=== PATIENT | female | born 1940 | race Caucasian/White ===

== ENCOUNTER 2017-11-08 20:07 | Emergency (ER) | payer OTHER ==
[2017-11-08 20:14] VITALS: BP 153/85
[2017-11-08] MEDS ORDERED: SULFACETAMIDE DROPS 10% PREPACK OPHT.BTL TAKEHOME ONE (20:20)
[2017-11-08] MEDS ORDERED: AMOXICILLIN/CLAVULANATE POT 875/125 MG TAB PO ONE (20:20)
--- NOTE | 2017-11-08 20:25 | EDPHY ---
H & P Stated Complaint: left eye drainage Source: Patient, Family () Exam Limitations: No limitations - Personal History Current Tetanus Diphtheria and Acellular Pertussis (TDAP): Unsure - Medical/Surgical History Hx Asthma: No Hx Chronic Respiratory Disease: No Hx Diabetes: No Hx Cardiac Disease: No Hx Renal Disease: No Hx Cirrhosis: No Hx Alcoholism: No Hx HIV/AIDS: No Hx Splenectomy or Spleen Trauma: No Other PMH: hypothyroid, tonsilectomy, endometriosis, heart murmer, atrial valve prolapse - Social History Smoking Status: Former smoker Time Seen by Provider: 11/08/17 20:20 HPI/ROS: HPI: This is a 76-year-old female who presents with Chief Complaint: Left eye discharge and sinus congestion Location: Left eye Quality: discharge Duration: 2 hr Signs and Symptoms: + low-grade fever, no nausea, no vomiting, no diarrhea, no urinary symptoms, no chest pain, no shortness of breath, no wheezing, no cough, no sore throat, no neck stiffness, no joint pain, no swollen glands, no ear pain , no rash Timing: Acute Severity: Moderate Context: Patient presents with 3-4 day history of nasal pressure, sinus congestion and low-grade fever. She has tried antihistamines and over-the- counter decongestants without any relief. Upon blowing her nose she has greenish yellow discharge and noted today some scant blood on the tissue paper. She reports that approximately 2 hr prior to arrival, she noted yellowish green discharge from the medial portion of her left eye. Denies any visual changes/ visual floaters/feeling a foreign body sensation/headache. Patient denies any seasonal allergies or itchy watery eyes, no sneezing. Has yearly eye exams. Modifying Factors: See above Comment: ROS: see HPI Constitutional: + fever, no chills, no weight loss Eyes: No blurred vision Respiratory: No shortness of breath, no cough Cardiovascular: No chest pain, no palpitations Gastrointestinal: No nausea, no vomiting, no diarrhea, no hematemesis, no blood in stool Genitourinary: No dysuria, no blood in urine Extremities: No myalgias, no edema Neurologic: No weakness, no numbness Skin: No rashes, no petechiae Hematologic: No bruising, no bleeding MEDICAL/SURGICAL/SOCIAL HISTORY: Medical/surgical history: hypothyroid, tonsillectomy, endometriosis, heart murmur, atrial valve prolapse Social history: . Retired. Family history noncontributory. CONSTITUTIONAL: Extremely pleasant elderly white female, awake and alert, no obvious distress HEENT: Atraumatic and normocephalic, PERRL, EOMI. Suborbital dark eating noted bilaterally. Nares patent; dried scant amount of blood in the right nare approximately at 3 o'clock; moderate nasal mucosal edema. Greenish discharge noted. Tympanic membranes clear. Oropharynx clear, no exudate and moist pink mucosa. Airway patent. No lymphadenopathy. No meningismus. Visual Acuity: noted from Nurse's notes. Pupils: equal round and reactive to light. EOMI. Lids: no edema or swelling Skin: no proptosis, no periorbital erythema or swelling, no vesicles Conjunctivae: Left Mildly injected, right no injection, + yellowish discharge right medial eye lower lid] NEUROLOGICAL: no focal neuro deficits. GCS 15. SKIN: Warm and dry, no erythema. no rash. Good capillary refill. (Heidy Otoole) Constitutional: Initial Vital Signs Temperature (C) 37.5 C 11/08/17 20:10 Heart Rate 92 11/08/17 20:10 Respiratory Rate 18 11/08/17 20:10 Blood Pressure 153/85 H 11/08/17 20:10 O2 Sat (%) 92 11/08/17 20:10 O2 Delivery Mode Room Air Allergies/Adverse Reactions: ketoprofen [From Orudis] Allergy (Verified 11/08/17 20:10) Home Medications: Medication Instructions Recorded Amoxicillin/Clavulanate Pot 875 mg PO BID #14 tab 11/08/17 [Augmentin 875 MG TAB (*)] Levothyroxine 11/08/17 Medical Decision Making ED Course/Re-evaluation: Patient clearly has a sinus infection along with conjunctivitis. Given Augmentin and Bleph 10 eyedrops. This patient was seen under the supervision of my secondary supervising physician. I evaluated care for this patient independently. Discussed this patient with Dr. Perea who did not see the patient. (Heidy Otoole) Differential Diagnosis: Differential diagnosis includes but is not limited to upper respiratory infection, viral conjunctivitis, bacterial conjunctivitis, sinusitis. (Heidy Otoole) Other Provider: PHYSICIAN DOCUMENTATION: The patient was evaluated and managed by the Physician Chemical Processing Laborer. My co- signature indicates that I have reviewed this chart and I agree with the findings and plan of care as documented. I am the secondary supervising physician. (Efrain Perea) - Data Points Medications Given: Discontinued Medications Amoxicillin/Clavulanate Potassium (Augmentin 875mg) 875 mg PO EDNOW ONE PRN Reason: Protocol Stop: 11/08/17 20:21 Last Admin: 11/08/17 20:29 Dose: 875 mg Sulfacetamide (Bleph-10 10% Opht Drops Prepack) 1 btl TAKEHOME EDNOW ONE Stop: 11/08/17 20:21 Last Admin: 11/08/17 20:29 Dose: 1 btl Departure - Departure Disposition: Home, Routine, Self-Care Clinical Impression: Acute bacterial sinusitis Left conjunctivitis Qualifiers: Conjunctivitis type: acute Acute conjunctivitis type: unspecified Qualified Code(s): H10.32 - Unspecified acute conjunctivitis, left eye Condition: Good Instructions: Sulfacetamide (Into the eye), Amoxicillin/Clavulanate Potassium ( By mouth), Sinusitis (ED), Conjunctivitis (ED) Additional Instructions: Please take [id number] Flonase or Rhinocort with 1 spray each nostril once daily for the next 7 days. Use Sudafed 30 mg every 8 hr as needed for nasal congestion. Use Bleph 10 ocular drops; 1 drop in your left eye every 6 hr while awake x5 days. Take Augmentin twice daily for the next 7 days. Eye Complaint: Return to the Emergency Department for any increase in eye pain or any worsening of your vision. Referrals: PCP Not In,Dictionary [Medical Doctor] - As per Instructions Prescriptions: Amoxicillin/Clavulanate Pot [Augmentin 875 MG TAB (*)] 875 mg PO BID #14 tab
== END 2017-11-08 20:48 | disposition home or self-care (01) ==
DX: J01.90 Acute sinusitis, unspecified (principal); H10.32 Unspecified acute conjunctivitis, left eye; Z87.891 Personal history of nicotine dependence

== ENCOUNTER 2018-09-14 17:38 | Emergency (ER) | payer OTHER ==
--- NOTE | 2018-09-14 17:48 | EDPHY ---
H & P Time Seen by Provider: 09/14/18 17:48 HPI/ROS: Chief complaint: Blood in right eye History of present illness: This is a 77-year-old female who presents to the emergency department for blood in her right eye. She reports the sudden onset of symptoms earlier today. She denies any specific precipitating factors such as direct trauma, sneezing, coughing, vomiting etc. She does not take blood thinners. She has never had a similar problem. She denies associated signs or symptoms including no pain, no visual changes, no headache. She wears glasses. She does not wear contacts. She has never had eye surgery. Smoking Status: Former smoker Physical Exam: General: Alert, nontoxic. Eyes: Patient has a subconjunctival hemorrhage to the medial aspect of her right eye. There is no hyphema. No hypopyon. PERRLA. EOM intact. Left eye unremarkable. Skin: Periorbital tissue unremarkable. Constitutional: Initial Vital Signs Temperature (C) 36.6 C 09/14/18 17:39 Heart Rate 82 09/14/18 17:39 Respiratory Rate 16 09/14/18 17:39 Blood Pressure 160/76 H 09/14/18 17:39 O2 Sat (%) 97 09/14/18 17:39 O2 Delivery Mode Room Air Allergies/Adverse Reactions: ketoprofen [From Orudis] Allergy (Verified 11/08/17 20:10) Home Medications: Medication Instructions Recorded Amoxicillin/Clavulanate Pot 875 mg PO BID #14 tab 11/08/17 [Augmentin 875 MG TAB (*)] Levothyroxine 11/08/17 MDM/Departure - [facility] ED Course/Re-evaluation: Patient seen under the supervision of my secondary supervising physician Dr. Arcadio Young. Patient presents to the emergency department with a subconjunctival hemorrhage. Her vision is at baseline. I have discussed symptomatic care at home. She is to follow up with her primary care doctor or an eye doctor this week for recheck. Her blood pressure is mildly elevated, she does not have a history of hypertension, perhaps this is contributing to it. She is to follow up with her primary care doctor for recheck of her blood pressure as well. Return precautions are given. Differential Diagnosis: Included but not limited to subconjunctival hemorrhage, - Depart Disposition: Home, Routine, Self-Care Clinical Impression: Subconjunctival bleed Qualifiers: Laterality: right Qualified Code(s): H11.31 - Conjunctival hemorrhage, right eye Condition: Good Instructions: Subconjunctival Hemorrhage (ED) Additional Instructions: Follow-up with an eye doctor this week for recheck Avoid medications that can thin the blood such as aspirin, ibuprofen or Aleve until your problem resolves or you are told otherwise by your doctor Follow-up with your primary care doctor for recheck of your blood pressure If symptoms worsen or new symptoms develop return to the emergency room for recheck Referrals: Keli Espino MD [Medical Doctor] - As per Instructions Kiki Gonzalez MD [Medical Doctor] - As per Instructions
[2018-09-14 18:05] VITALS: BP 166/65
== END 2018-09-14 18:04 | disposition home or self-care (01) ==
DX: H11.31 Conjunctival hemorrhage, right eye (principal)